=== PATIENT | female | born 1950 | race Caucasian/White ===

== ENCOUNTER 2021-03-18 21:17 | Observation (INO) | payer BC, OTHER ==
[2021-03-18 22:41] LABS: Absolute Lymphocytes (CBC) 1.3 K/uL (0.7-4.9); Basophils % 0.7 % (0-1.3); Hematocrit 38.9 % (36.0-45.0); Lymphocytes % 12.8 % (15.3-44.8); RBC Red Blood Cell Count 4.25 M/uL (3.86-4.86)
[2021-03-18 23:11] LABS: ALT/SGPT 20 U/L (12-78); AST/SGOT 12 U/L (15-37); Alkaline Phosphatase 51 U/L (45-117); BUN Blood Urea Nitrogen 23 mg/dL (7-18); Bicarbonate 31 mmol/L (21-32); Bilirubin Direct < 0.1 mg/dL (0-0.2); Bilirubin Total 0.4 mg/dL (0.2-1.0); Glucose Level 94 mg/dL (74-106); Magnesium 2.3 mg/dL (1.8-2.4); NT PRO-BNP 448 pg/mL (<125); Potassium 3.8 mmol/L (3.5-5.1); Protein, Total 7.9 g/dL (6.4-8.2); Sodium Level 139 mmol/L (136-145); Troponin (Emerg Dept Use Only) < 0.02 ng/mL (0.0-0.045)
[2021-03-18] MEDS ORDERED: METOPROLOL TARTRATE 5 MG/5 ML INJ IV ONE (23:23)
[2021-03-18] MEDS ORDERED: Magnesium Sulfate 2gm IVPB 2 G/50 ML BAG IV ONE (23:23)
[2021-03-18 23:40] LABS: Protime INR 1.02
[2021-03-19] MEDS ORDERED: NA CHLORIDE 0.9% 1,000 ML ONE (00:36)
[2021-03-19] MEDS ORDERED: HYDROCODONE/APAP 5/325 MG TAB ONE ×3 (00:36→12:06)
[2021-03-19] MEDS ORDERED: METOPROLOL TAR 50 MG TAB ONE ×2 (00:38→08:19)
--- NOTE | 2021-03-19 01:02 | ER ---
Nurse's Notes [facility] Name: Jumana Ley Age: 70 yrs Sex: Female : 1950 Arrival Date: 03/18/2021 Time: 21:29 Bed 17 Private MD: Diagnosis: Atrial fibrillation and flutter-with RVR Presentation: 03/18 21:31 Chief complaint: Patient states: I feel like my heart is racing, I have an abscessed jb4 tooth that's causing a earache and a headache. Coronavirus screen: Client denies travel out of the [place] in the last 14 days. At this time, the client does not indicate any symptoms associated with coronavirus-19. Ebola Screen: No symptoms or risks identified at this time. Initial Sepsis Screen: Does the patient meet any 2 criteria? HR > 90 bpm. Yes Does the patient have a suspected source of infection? No. Patient's initial sepsis screen is negative. Risk Assessment: Do you want to hurt yourself or someone else? Patient reports no desire to harm self or others. Onset of symptoms was March 18, 2021. 21:31 Method Of Arrival: Wheelchair jb4 21:31 Acuity: SHAI 2 jb4 Historical: - Allergies: 21:44 No Known Allergies; jb4 - Home Meds: 21:44 breathing treatment [Active]; Furosemide Oral [Active]; jb4 - PMHx: 21:44 COPD; Emphysema; jb4 - PSHx: 21:44 Tubal ligation; jb4 - Immunization history:: Adult Immunizations up to date. - Social history:: Smoking status: Patient/guardian denies using tobacco, the patient reports quitting approximately 8 years ago, Patient/guardian denies using alcohol, the patient reports quitting approximately [address] drugs. Screenin:20 Abuse screen: Denies threats or abuse. Denies injuries from another. Nutritional sf screening: No deficits noted. Tuberculosis screening: No symptoms or risk factors identified. Fall Risk None identified. No fall in past 12 months (0 pts). No secondary diagnosis (0 pts). IV access (20 points). Ambulatory Aid- None/Bed Rest/Nurse Assist (0 pts). Gait- Normal/Bed Rest/Wheelchair (0 pts) Mental Status- Oriented to own ability (0 pts). Total Nguyen Fall Scale indicates No Risk (0-24 pts). Assessment: 22:20 General: Appears in no apparent distress. comfortable, Behavior is calm, cooperative. sf Pain: Denies pain. Neuro: Level of Consciousness is awake, alert, Oriented to person, place, time, situation. Cardiovascular: Reports palpitations, shortness of breath, Denies nausea, vomiting, Capillary refill < 3 seconds Patient's skin is warm and dry. Pulses are all present. Rhythm is irregular. Respiratory: Reports shortness of breath at rest Airway is patent Respiratory effort is even, labored, Respiratory pattern is symmetrical, tachypnea the patient has moderate shortness of breath Denies cough, pain with respiration. GI: No deficits noted. No signs and/or symptoms were reported involving the gastrointestinal system. : No deficits noted. No signs and/or symptoms were reported regarding the genitourinary system. EENT: No deficits noted. No signs and/or symptoms were reported regarding the EENT system. Derm: No deficits noted. No signs and/or symptoms reported regarding the dermatologic system. Musculoskeletal: No deficits noted. No signs and/or symptoms reported regarding the musculoskeletal system. 23:20 Reassessment: Patient and/or family updated on plan of care and expected duration. Pain sf level reassessed. Patient is alert, oriented x 3, equal unlabored respirations, skin warm/dry/pink. No change to heart rate and rhythm, still irregular rate from 45-170 Patient states symptoms have not improved. 03/19 00:52 Reassessment: Patient appears in no apparent distress at this time. Patient and/or sf family updated on plan of care and expected duration. Pain level reassessed. Patient is alert, oriented x 3, equal unlabored respirations, skin warm/dry/pink. Rhythm remains irregular but rate now between 60 and 75 Patient states symptoms have improved. Vital Signs: 03/18 21:31 BP 122 / 89; Pulse 162; Resp 18; Temp 97.8(O); Pulse Ox 100% on 2 lpm NC; Weight 58.97 jb4 kg (R); Height 5 ft. 1 in. (154.94 cm); Pain 4/10; 22:00 BP 137 / 47; Pulse 135; Resp 20; Pulse Ox 94% ; sf 22:30 BP 178 / 119; Pulse 147; Resp 20; Pulse Ox 99% ; sf 23:00 BP 183 / 168; Pulse 72; Resp 20; Pulse Ox 98% on 3 lpm NC; sf 23:05 BP 148 / 115; Pulse 66; Resp 20; Pulse Ox 98% ; sf 23:10 BP 140 / 128; Pulse 42; Resp 20; Pulse Ox 98% ; sf 23:15 BP 143 / 126; Pulse 137; Resp 20; Pulse Ox 98% ; sf 23:20 BP 108 / 68; Pulse 149; Resp 20; Pulse Ox 97% ; sf 03/19 00:20 BP 150 / 97; Pulse 146; Resp 20; Pulse Ox 97% ; Pain 7/10; sf 00:40 BP 116 / 62; Pulse 82; Resp 20; Pulse Ox 100% ; sf 01:00 BP 138 / 56; Pulse 97; Resp 20; Pulse Ox 98% ; sf 01:20 BP 135 / 97; Pulse 55; Resp 20; Pulse Ox 98% ; sf 02:00 BP 124 / 45; Pulse 44; Resp 20; Pulse Ox 98% on 3 lpm NC; sf 03/18 21:31 Body Mass Index 24.56 (58.97 kg, 154.94 cm) jb4 ED Course: 03/18 21:29 Patient arrived in ED. cf2 21:43 Triage completed. jb4 21:44 Arm band placed on right wrist. jb4 21:54 Trevor Vazquez, JOSE RAUL is Primary Nurse. sf 22:08 Ady Jerez PA is PHCP. jr8 22:08 Raf Castro MD is Attending Physician. jr8 22:20 Patient has correct armband on for positive identification. Placed in gown. Bed in low sf position. Call light in reach. Side rails up X 1. school bus monitor on. Pulse ox on. NIBP on. Door closed. Noise minimized. Visitors limited. Lights dimmed. Verbal reassurance given. 22:23 XRAY Chest (1 view) In Process Unspecified. EDMS 22:25 Initial lab(s) drawn, by me, sent to lab. Inserted saline lock: 18 gauge in right sf forearm, using aseptic technique. Blood collected. Oxygen administration via nasal cannula \T\ 3L/min. 03/19 01:02 Hawk Marshall MD is Hospitalizing Provider. jr8 01:04 No provider procedures requiring assistance completed. EKG done, by ED staff, reviewed sf by Ady HERNÁNDEZ. 03:29 Patient admitted, IV remains in place. sf Administered Medications: 03/18 23:05 Drug: Metoprolol 5 mg Route: IVP; Site: right forearm; sf 23:10 Drug: Metoprolol 5 mg Route: IVP; Site: right forearm; sf 23:15 Drug: Metoprolol 5 mg Route: IVP; Site: right forearm; sf 23:23 Follow up: Response: No adverse reaction; No change in condition sf 23:16 Drug: Magnesium Sulfate 2 grams Route: IVPB; Infused Over: 2 hrs; Site: right forearm; sf 03/19 01:15 Follow up: IV Status: Completed infusion; IV Intake: 100ml sf 01:15 Follow up: Response: No adverse reaction sf 00:22 Drug: Metoprolol TARTRATE 50 mg Route: PO; sf 01:00 Follow up: Response: No adverse reaction; Marked relief of symptoms sf 00:22 Drug: [place] (HYDROcodone-acetaminophen) 5 mg-325 mg 1 tabs Route: PO; sf 01:00 Follow up: Response: No adverse reaction; Pain is decreased sf 00:24 Drug: NS 0.9% 1000 ml Route: IV; Rate: 1000 ml; Site: right forearm; sf 01:00 Follow up: Response: No adverse reaction; IV Status: Completed infusion; IV Intake: sf 500ml 01:59 Drug: Eliquis (apixaban) 5 mg Route: PO; sf 02:32 Follow up: Response: No adverse reaction sf Intake: 01:00 IV: 500ml; Total: 500ml. sf 01:15 IV: 100ml; Total: 600ml. Outcome: 01:02 Decision to Hospitalize by Provider. jr8 03:29 Admitted to ER Hold. Please see [facility] for further documentation. sf 03:29 Condition: stable 03:29 Instructed on the need for admit. 13:03 Patient left the ED. em Signatures: Dispatcher [employer] Dylan Ross RN Ady William PA PA jr8 Nik Obregon RN RN jb4 Faith Martin 2 Trevor Vazquez RN RN
--- NOTE | 2021-03-19 01:03 | EDPHYS ---
Physician Documentation [facility] Name: Jumana Ley Age: 70 yrs Sex: Female : 1950 Arrival Date: 03/18/2021 Time: 21:29 Bed 17 Private MD: ED Physician Raf Castro HPI: 03/18 23:23 This 70 yrs old Female presents to ER via Wheelchair with complaints of jr8 Palpitations, Chest Pain, Toothache, Ear Pain. 23:23 The patient presents with a history of irregular heart beat, heart racing. Context: The jr8 symptoms occur at rest. Onset: The symptoms/episode began/occurred acutely, today. Duration: The patient or guardian reports multiple episodes, that wax and wane. Modifying factors: The symptoms are aggravated by nothing. The symptoms are alleviated by nothing. Associated signs and symptoms: Pertinent positives: SOB. Severity of symptoms: At their worst the symptoms were moderate in the emergency department the symptoms are unchanged. The patient has experienced similar episodes in the past, a few times. The patient has not recently seen a physician. Patient stated that she has history of paroxysmal atrial fib in past. Stated that she is having it today and it is more persistent and now causing increased shortness of breath from her baseline. Also has toothache that radiates to right face and ear . Historical: - Allergies: 21:44 No Known Allergies; jb4 - Home Meds: 21:44 breathing treatment [Active]; Furosemide Oral [Active]; jb4 - PMHx: 21:44 COPD; Emphysema; jb4 - PSHx: 21:44 Tubal ligation; jb4 - Immunization history:: Adult Immunizations up to date. - Social history:: Smoking status: Patient/guardian denies using tobacco, the patient reports quitting approximately 8 years ago, Patient/guardian denies using alcohol, the patient reports quitting approximately [address] drugs. ROS: 23:23 Eyes: Negative for injury, pain, redness, and discharge, Neck: Negative for injury, jr8 pain, and swelling, Abdomen/GI: Negative for abdominal pain, nausea, vomiting, diarrhea, and constipation, Back: Negative for injury and pain, MS/Extremity: Negative for injury and deformity, Skin: Negative for injury, rash, and discoloration, Neuro: Negative for headache, weakness, numbness, tingling, and seizure. 23:23 ENT: Positive for Teeth pain 23:23 Cardiovascular: Positive for palpitations. 23:23 Respiratory: Positive for shortness of breath. Exam: 23:23 Neck: Trachea midline, no thyromegaly or masses palpated, and no cervical jr8 lymphadenopathy. Supple, full range of motion without nuchal rigidity, or vertebral point tenderness. No Meningismus. Abdomen/GI: Soft, non-tender, with normal bowel sounds. No distension or tympany. No guarding or rebound. No evidence of tenderness throughout. Skin: Warm, dry with normal turgor. Normal color with no rashes, no lesions, and no evidence of cellulitis. MS/ Extremity: Pulses equal, no cyanosis. Neurovascular intact. Full, normal range of motion. Neuro: Awake and alert, GCS 15, oriented to person, place, time, and situation. Cranial nerves II-XII grossly intact. Motor strength 5/5 in all extremities. Sensory grossly intact. 23:23 ENT: Exam is negative for earache, ear discharge, TM abnormalities, nasal discharge, sinus tenderness, enlarged tonsils, pharyngitis, exudate, Dental exam: dental caries, that is mild, diffusely, pain, that is moderate, specifically in the lower right second molar (#31). 23:23 Cardiovascular: Rate: tachycardic, Rhythm: irregularly irregular, Pulses: Pulses are 2+ in right radial artery and left radial artery. Edema: is not appreciated, JVD: is not appreciated. 23:23 Respiratory: the patient does not display signs of respiratory distress, Respirations: labored breathing, that is mild, Breath sounds: rhonchi, that are mild. Vital Signs: 21:31 BP 122 / 89; Pulse 162; Resp 18; Temp 97.8(O); Pulse Ox 100% on 2 lpm NC; Weight 58.97 jb4 kg (R); Height 5 ft. 1 in. (154.94 cm); Pain 4/10; 22:00 BP 137 / 47; Pulse 135; Resp 20; Pulse Ox 94% ; sf 22:30 BP 178 / 119; Pulse 147; Resp 20; Pulse Ox 99% ; sf 23:00 BP 183 / 168; Pulse 72; Resp 20; Pulse Ox 98% on 3 lpm NC; sf 23:05 BP 148 / 115; Pulse 66; Resp 20; Pulse Ox 98% ; sf 23:10 BP 140 / 128; Pulse 42; Resp 20; Pulse Ox 98% ; sf 23:15 BP 143 / 126; Pulse 137; Resp 20; Pulse Ox 98% ; sf 23:20 BP 108 / 68; Pulse 149; Resp 20; Pulse Ox 97% ; sf 03/19 00:20 BP 150 / 97; Pulse 146; Resp 20; Pulse Ox 97% ; Pain 7/10; sf 00:40 BP 116 / 62; Pulse 82; Resp 20; Pulse Ox 100% ; sf 01:00 BP 138 / 56; Pulse 97; Resp 20; Pulse Ox 98% ; sf 01:20 BP 135 / 97; Pulse 55; Resp 20; Pulse Ox 98% ; sf 02:00 BP 124 / 45; Pulse 44; Resp 20; Pulse Ox 98% on 3 lpm NC; 03/18 21:31 Body Mass Index 24.56 (58.97 kg, 154.94 cm) jb4 MDM: 03/18 22:10 Patient medically screened. [facility] 03/19 01:01 Data reviewed: vital signs, nurses notes, lab test result(s), EKG, radiologic studies, [facility] plain films. Data interpreted: Pulse oximetry: on room air is 97 %. Interpretation: normal. Counseling: I had a detailed discussion with the patient and/or guardian regarding: the historical points, exam findings, and any diagnostic results supporting the discharge/admit diagnosis, lab results, radiology results, the need for further work-up and treatment in the hospital. 03/18 22:09 Order name: Basic Metabolic Panel [facility] 03/18 22:09 Order name: CBC with Diff [facility] 03/18 22:09 Order name: LFT's [facility] 03/18 22:09 Order name: Magnesium; Complete Time: 23:22 [facility] 03/18 22:09 Order name: NT PRO-BNP; Complete Time: 23:22 [facility] 03/18 22:09 Order name: PT-INR; Complete Time: 23:55 [facility] 03/18 22:09 Order name: Troponin (emerg Dept Use Only); Complete Time: 23:22 [facility] 03/18 22:10 Order name: Basic Metabolic Panel; Complete Time: 23:22 [facility] 03/18 22:10 Order name: CBC with Automated Diff; Complete Time: 23:08 [facility] 03/18 22:10 Order name: Liver (Hepatic) Function; Complete Time: 23:22 [facility] 03/19 05:27 Order name: CORONAVIRUS [facility] 03/19 06:15 Order name: SARS-COV-2 RT PCR [facility] 03/19 06:28 Order name: CBC with Automated Diff [facility] 03/19 06:43 Order name: Comprehensive Metabolic Panel [facility] 03/18 21:59 Order name: EKG - Nurse/Tech; Complete Time: 21:59 4 03/18 22:09 Order name: XRAY Chest (1 view) [facility] 03/18 22:09 Order name: Cardiac monitoring; Complete Time: 22:45 8 03/18 22:09 Order name: IV Saline Lock; Complete Time: 22:45 [facility] 03/18 22:09 Order name: Labs collected and sent; Complete Time: 22:45 [facility] 03/18 22:09 Order name: O2 Per Protocol; Complete Time: 22:45 [facility] 03/19 06:43 Order name: T4 Free [facility] 03/19 06:43 Order name: Magnesium [facility] 03/19 06:43 Order name: Thyroid Stimulating Hormone [facility] 03/19 08:41 Order name: CBC Smear Scan [facility] 03/18 22:09 Order name: O2 Sat Monitoring; Complete Time: 22:45 jr8 Administered Medications: 03/18 23:05 Drug: Metoprolol 5 mg Route: IVP; Site: right forearm; sf 23:10 Drug: Metoprolol 5 mg Route: IVP; Site: right forearm; sf 23:15 Drug: Metoprolol 5 mg Route: IVP; Site: right forearm; sf 23:23 Follow up: Response: No adverse reaction; No change in condition sf 23:16 Drug: Magnesium Sulfate 2 grams Route: IVPB; Infused Over: 2 hrs; Site: right forearm; sf 03/19 01:15 Follow up: IV Status: Completed infusion; IV Intake: 100ml sf 01:15 Follow up: Response: No adverse reaction sf 00:22 Drug: Metoprolol TARTRATE 50 mg Route: PO; sf 01:00 Follow up: Response: No adverse reaction; Marked relief of symptoms sf 00:22 Drug: [place] (HYDROcodone-acetaminophen) 5 mg-325 mg 1 tabs Route: PO; sf 01:00 Follow up: Response: No adverse reaction; Pain is decreased sf 00:24 Drug: NS 0.9% 1000 ml Route: IV; Rate: 1000 ml; Site: right forearm; sf 01:00 Follow up: Response: No adverse reaction; IV Status: Completed infusion; IV Intake: sf 500ml 01:59 Drug: Eliquis (apixaban) 5 mg Route: PO; sf 02:32 Follow up: Response: No adverse reaction sf Disposition: 03:38 Co-signature as Attending Physician, Raf Castro MD. pkl Disposition: 03/19/21 01:02 Hospitalization ordered by Hawk Marshall for Observation. Preliminary diagnosis is Atrial fibrillation and flutter - with RVR. - Bed requested for [facility] ER HOLD. - Status is Observation. em - Condition is Stable. - Problem is new. - Symptoms have improved. Signatures: Dispatcher [employer] EDRaf Yo MD MD pkl Dylan High, RN RN em Ady Jerez, PA PA jr8 Juan Reilly, WASTE TRANSPORTATION TECHNICIAN-C WASTE TRANSPORTATION TECHNICIAN-Cla1 Nik Obregon, RN RN jb4 Wilner Keene mw2 Trevor Vazquez RN RN sf Corrections: (The following items were deleted from the chart) 01:49 01:02 Hospitalization Ordered by Hawk Marshall MD for Observation. Preliminary mw2 diagnosis is Atrial fibrillation and flutter - with RVR. Bed requested for Telemetry/MedSurg (observation). Status is Observation. Condition is Stable. Problem is new. Symptoms have improved. jr8 13:03 01:49 03/19/2021 01:02 Hospitalization Ordered by Hawk Marshall MD for Observation. em Preliminary diagnosis is Atrial fibrillation and flutter - with RVR. Bed requested for [facility] ER HOLD. Status is Observation. Condition is Stable. Problem is new. Symptoms have improved. mw2
--- NOTE | 2021-03-19 01:51 | P.HP ---
Certification for Inpatient Patient admitted to: Observation With expected LOS: <2 Midnights Patient will require the following post-hospital care: None Practitioner: I am a practitioner with admitting privileges, knowledge of patient current condition, hospital course, and medical plan of care. Services: Services provided to patient in accordance with Admission requirements found in Title 42 Section 412.3 of the Code of Federal Regulations Patient History Date of Service: 03/19/21 Reason for admission: AFib RVR History of Present Illness: 70-year-old female with history of COPD, hypertension presents emergency department with palpitations. Patient reports that she has had a history of paroxysmal atrial fibrillation but is never persisted or require treatment, upon presentation to the emergency department patient tachycardic with irregularly irregular rhythm around rate of 160. Patient was treated with IV Lopressor x3, p.o. Lopressor, IV magnesium and rate was controlled although she is still in irregular rhythm. Labs significant for mildly elevated BNP 448 GFR 89. Chest x-ray unremarkable. Patient reports that she has COPD and has been using albuterol nebulizer 4 times a day but not taking any other control medications as she has not seen her retail merchandiser since last year. Patient also reports right lower dental pain. ED provider wishes to admit for further evaluation and management of AFib RVR. - Past Medical/Surgical History -: COPD -: Hypertension -: Tubal ligation Psychosocial/ Personal History: Patient is retired, lives with her - Family History Father -: Heart disease, Cancer Mother -: Heart disease, Cancer - Social History Smoking Status: Former smoker Alcohol use: No CD- Drugs: No Caffeine use: Yes Place of Residence: Home Review of Systems 10-point ROS is otherwise unremarkable Respiratory: Shortness of Breath Cardiovascular: Palpitations Physical Examination - Physical Exam General: Alert, In no apparent distress HEENT: Atraumatic, PERRLA, Mucous membr. moist/pink Neck: Supple, 2+ carotid pulse no bruit, No LAD, Without JVD or thyroid abnormality Respiratory: Clear to auscultation bilaterally, Normal air movement, Diminished Cardiovascular: Normal S1 S2, Irregular heart rate/rhythm Capillary refill: <2 Seconds Gastrointestinal: Normal bowel sounds, No tenderness Musculoskeletal: No tenderness Integumentary: No rashes Neurological: Normal speech, Normal strength at 5/5 x4 extr, Normal tone, Normal affect - Studies Laboratory Data (last 24 hrs) 03/18/21 22:25: PT 11.7, INR 1.02 03/18/21 22:25: WBC 10.50, Hgb 12.6, Hct 38.9, Plt Count 179 03/18/21 22:25: Sodium 139, Potassium 3.8, BUN 23 H, Creatinine 0.66, Glucose 94, Magnesium 2.3, Total Bilirubin 0.4, AST 12 L, ALT 20, Alkaline Phosphatase 51 Assessment and Plan - Plan Assessment Paroxysmal atrial fibrillation with rapid ventricular response Hypertension COPD Plan Paroxysmal atrial fibrillation with rapid ventricular response: Rate controlled at this time, continue with p.o. metoprolol 50 mg twice daily with parameters. Cardiology consult in place. Eliquis 5 mg was initiated in the emergency department, patient's SAI VASC score is 3 which would suggest with the implementation of anti coagulation therapy. Appreciate further input from cardiology. Hypertension: Continue with metoprolol. Add other medications as necessary. COPD: Patient reports she has been taking albuterol nebulizer 4 times daily without any of the control medications, will initiate Dulera inhaler, instructed patient's needs to follow up with pulmonology on outpatient basis. Discharge Plan: Home Plan to discharge in: 24 Hours - Advance Directives Does patient have a Living Will: No Does patient have a Durable POA for Healthcare: No - Code Status/Comfort Care Code Status Assessed: Yes (Full code) Critical Care: No Time Spent Managing Pts Care (In Minutes): 55
[2021-03-19] MEDS ORDERED: APIXABAN 5 MG TABLET ONE ×2 (02:16→08:19)
[2021-03-19 02:47] VITALS: BMI 24.5
[2021-03-19] MEDS ORDERED: ONDANSETRON 4 MG/2 ML VIAL IV PRN (02:47)
[2021-03-19] MEDS ORDERED: HYDROCODONE/APAP 5/325 MG TAB PO PRN (02:47)
[2021-03-19] MEDS ORDERED: ALBUTEROL INHALER 60 PUFF/8 GM IH PRN (02:47)
[2021-03-19] MEDS ORDERED: ALBUTEROL 2.5 MG/3 ML NEB SOL NEB PRN (03:10)
[2021-03-19] MEDS: LEVALBUTEROL 1.25 MG/3 ML NEB NEB PRN ×2 (03:25→08:40)
[2021-03-19] MEDS ORDERED: LEVALBUTEROL 1.25 MG/3 ML NEB ONE (03:33)
[2021-03-19] MEDS ORDERED: METOPROLOL TARTRATE 5 MG/5 ML INJ IV STA ×3 (05:27→06:18)
[2021-03-19] MEDS ORDERED: METOPROLOL TARTRATE 5 MG/5 ML INJ IV ONE ×2 (05:48→06:14)
[2021-03-19 06:27] LABS: Absolute Lymphocytes (CBC) 0.6 K/uL (0.7-4.9); Basophils % 0.5 % (0-1.3); Hematocrit 37.4 % (36.0-45.0); Lymphocytes % 6.7 % (15.3-44.8); MPV 9.2 fL (7.6-11.3); RBC Red Blood Cell Count 4.05 M/uL (3.86-4.86)
[2021-03-19 06:40] LABS: ALT/SGPT 19 U/L (12-78); AST/SGOT 14 U/L (15-37); Albumin 3.5 g/dL (3.4-5.0); Alkaline Phosphatase 47 U/L (45-117); BUN Blood Urea Nitrogen 20 mg/dL (7-18); Bicarbonate 31 mmol/L (21-32); Bilirubin Total 0.4 mg/dL (0.2-1.0); Glucose Level 95 mg/dL (74-106); Magnesium 2.6 mg/dL (1.8-2.4); Potassium 4.3 mmol/L (3.5-5.1); Protein, Total 7.3 g/dL (6.4-8.2); Sodium Level 140 mmol/L (136-145)
[2021-03-19 08:17] VITALS: BP 142/60
[2021-03-19 08:26] VITALS: O2SAT 100
[2021-03-19 08:41] LABS: Blood Morphology Comment NOT SEEN (NOT SEEN); Platelet Estimate ADEQ; White Blood Cell Scan OK (OK)
--- NOTE | 2021-03-19 08:49 | RAD REPORT ---
EXAM DESCRIPTION: RAD - Chest Single View - 03/18/2021 10:23 pm CLINICAL HISTORY: DYSPNEA Chest pain. COMPARISON: No comparisons FINDINGS: Portable technique limits examination quality. The lungs are emphysematous but grossly clear. The heart is normal in size. No displaced fractures. IMPRESSION: COPD.
[2021-03-19] MEDS ORDERED: LEVALBUTEROL 0.63 MG/3 ML NEB ONE (08:55)
[2021-03-19] MEDS ORDERED: APIXABAN 5 MG TABLET PO SCH (09:00)
[2021-03-19] MEDS ORDERED: PNEUMOCOCCAL VACCINE 0.5 ML IMVAC ONE (09:00)
[2021-03-19] MEDS ORDERED: DULERA 100/5 (MOMETASONE/FORMOTEROL) INHALER IH SCH (09:00)
[2021-03-19] MEDS ORDERED: METOPROLOL TAR 50 MG TAB PO SCH (09:00)
--- NOTE | 2021-03-19 13:03 | CON ---
Date of Consultation: 03/19/2021 Reason For Consultation: Atrial fibrillation with rapid ventricular response as a new onset. History Of Present Illness: Ms. Ley is a 70-year-old woman without any past cardiac history. She does have a history of COPD. She is home oxygen dependent. Came in with new onset of atrial fi brillation, initial heart rate 140, was given beta-shikha, was given Eliquis, and she converted to s inus rhythm by the time I saw her without any symptoms. She has initially complained of palpitation and shortness of breath, but no chest pain. No nausea, vomiting, diaphoresis, PND, orthopnea, pedal edema, or syncope. She denied fever or chills or cough. Past Medical History: Includes COPD. Medications: At home include Lasix and breathing treatment. Review of Systems: Negative. Social History: Positive for tobacco that she quit. Family History: Noncontributory. Physical Examination: Vital Signs: By the time I saw her; her blood pressure was 130/89, her pulse was 62. She was afebri le. HEENT: Negative. Neck: Supple with no bruit. Chest: Clear to auscultation and percussion. Cardiac: Revealed a regular rhythm and rate. No murmurs, gallops, or rubs. Abdomen: Benign. Extremities: Revealed no clubbing, cyanosis, or edema. Laboratory Data: Her chest x-ray showed COPD and EKG atrial fibrillation. Her blood work was normal . Her BNP was slightly elevated at 448. Her TSH was normal. Impression And Plan: New onset atrial fibrillation, probably secondary to chronic obstructive pulmon katarina disease. Continue inhalers at home. She needs to be placed on metoprolol, which she is on now. I would leave that up to Dr. Marshall whether he wants to treat her with Eliquis or Xarelto, but she is in sinus rhythm, asymptomatic. I am comfortable with her going home. I will make sure she gets an echocardiogram as an outpatient. I will see her in the office in the next few days. ROCÍO/DIMITRI Voice ID: [id number] Report ID: [id number]
[2021-03-19 13:19] VITALS: TEMP 97.8
--- NOTE | 2021-03-19 20:17 | P.DS ---
Admission Date: 03/19/21 Discharge Date: 03/19/21 Disposition: ROUTINE DISCHARGE Discharge Condition: GOOD Reason for Admission: AFib RVR Consultations: Cardiology - Dr. Blackwood Procedures: Problem List: Paroxysmal atrial fibrillation with rapid ventricular response Hypertension COPD Brief History of Present Illness: 70-year-old female with history of COPD, hypertension presents emergency department with palpitations. Patient reports that she has had a history of paroxysmal atrial fibrillation but is never persisted or require treatment, upon presentation to the emergency department patient tachycardic with irregularly irregular rhythm around rate of 160. Patient was treated with IV Lopressor x3, p.o. Lopressor, IV magnesium and rate was controlled although she is still in irregular rhythm. Labs significant for mildly elevated BNP 448 GFR 89. Chest x-ray unremarkable. Patient reports that she has COPD and has been using albuterol nebulizer 4 times a day but not taking any other control medications as she has not seen her personal banking advisor since last year. Patient also reports right lower dental pain. ED provider wishes to admit for further evaluation and management of AFib RVR. Hospital Course: Patient received lopressor IV and PO metoprolol 50mg BID. She converted back to sinus rhythm and was feeling better. She was evaluated by Cardiology who recommended discharge home with metoprolol and close follow up in a few days in the office. She will undergo echocardiogram as an outpatient. Discharged with prescription for Eliquis as well. Vital Signs/Physical Exam: Temp Pulse Resp BP Pulse Ox 97.8 F 66 21 H 142/60 H 99 03/18/21 21:31 03/19/21 08:17 03/19/21 08:00 03/19/21 08:17 03/19/21 08:00 Laboratory Data at Discharge: WBC 9.40 K/uL (4.3-10.9) 03/19/21 03:41 Hgb 12.0 g/dL (12.0-15.0) 03/19/21 03:41 Hct 37.4 % (36.0-45.0) 03/19/21 03:41 Plt Count 183 K/uL (152-406) 03/19/21 03:41 PT 11.7 SECONDS (9.5-12.5) 03/18/21 22:25 INR 1.02 03/18/21 22:25 Sodium 140 mmol/L (136-145) 03/19/21 05:45 Potassium 4.3 mmol/L (3.5-5.1) 03/19/21 05:45 BUN 20 mg/dL (7-18) H 03/19/21 05:45 Creatinine 0.49 mg/dL (0.55-1.3) L 03/19/21 05:45 Glucose 95 mg/dL (74-106) 03/19/21 05:45 Magnesium 2.6 mg/dL (1.8-2.4) H 03/19/21 05:45 Total Bilirubin 0.4 mg/dL (0.2-1.0) 03/19/21 05:45 AST 14 U/L (15-37) L 03/19/21 05:45 ALT 19 U/L (12-78) 03/19/21 05:45 Alkaline Phosphatase 47 U/L (45-117) 03/19/21 05:45 Home Medications: Apixaban [Eliquis] 5 mg PO BID #0 tablet 03/19/21 Metoprolol Tartrate [Lopressor*] 50 mg PO BID #0 tab 03/19/21 Mometasone/Formoterol [Dulera 100 Mcg/5 Mcg Inhaler] 2 puff IH BID 30 Days #1 inhaler 03/19/21 New Medications: Mometasone/Formoterol [Dulera 100 Mcg/5 Mcg Inhaler] 2 puff IH BID 30 Days #1 inhaler Apixaban [Eliquis] 5 mg PO BID #0 tablet Metoprolol Tartrate [Lopressor*] 50 mg PO BID #0 tab Physician Discharge Instructions: You were found to have atrial fibrillation. Your rhythm improved with metoprolol. Atrial Fibrillation (afib) increases your risk of developing a blood clot and a stroke. For this reason, you are recommended to take a blood thinner - Eliquis. Continue your other home medications as prescribed. Please follow up with Dr. Blackwood as discussed on Tuesday at 1pm. PROBLEM: Atrial Fibrillation GOAL: Clear understanding of disease process INSTRUCTIONS: Please follow up with primary care doctor as instructed. Diet: Heart Healthy Activity: As tolerated Diet: AHA Activity: Ad eddie Followup: OOT,OOT [Primary Care Provider] - Time spent managing pt's care (in minutes): 35
== END 2021-03-19 11:00 | disposition home or self-care (01) ==
LOC: ER 21:17 → INTOOBSV 03-19 01:37 → ERHOLD 03-19 01:37
PROVIDERS: ADMIT Hospitalist; ATTEND Hospitalist
DX: I48.0 Paroxysmal atrial fibrillation (principal); I48.92 Unspecified atrial flutter; I10 Essential (primary) hypertension; J44.9 Chronic obstructive pulmonary disease, unspecified; Z99.81 Dependence on supplemental oxygen; J43.9 Emphysema, unspecified; K08.89 Other specified disorders of teeth and supporting structures; Z20.822 Contact with and (suspected) exposure to COVID-19; Z87.891 Personal history of nicotine dependence; Z82.49 Family history of ischemic heart disease and other diseases of the circulatory system; Z80.9 Family history of malignant neoplasm, unspecified
CPT/HCPCS: 96365; 93005 ×2; 85025 ×2; 80048; 36415; 83735 ×2; 85610; 80076; 84443; 84484; 84439; 80053; 83880; 71045; 94640; 96375; 99285; 96366; U0003; J3475; J7030; G0378; J7606

== ENCOUNTER 2021-03-23 05:13 | Inpatient (IN) | payer BC, OTHER ==
--- OUTSIDE RECORDS SUMMARY | 2021-03-23 05:17 | XMS REPORT | Continuity of Care Document ---
:1950 Author Organization [facility] t Address [address] [place] [address] [address]. [address] [place] [address] Care Team Providers Name Role Phone Vickey PAGE Attending Clinician Rico PAGE S Attending Clinician Soham PAGE Attending Clinician Soham PAGE Admitting Clinician Problems This patient has no known problems. Allergies, Adverse Reactions, Alerts This patient has no known allergies or adverse reactions. Medications This patient has no known medications. Procedures This patient has no known procedures. Encounters Start End Encounter Admission Attending Care Care Encounter Source Date/Time Date/Time Type Type Clinicians Facility Department ID 2020-03-25 2020-04-02 [facility] Casey Hurd [facility] [id number] 18:31:30 16:00:00 Encounter Samson Gómez [id number] Robert Rousseau [id number] [place] [id number] Results This patient has no known results.
[2021-03-23] MEDS ORDERED: NA CHLORIDE 0.9% 1,000 ML ONE (06:05)
[2021-03-23] MEDS ORDERED: METOPROLOL TARTRATE 5 MG/5 ML INJ IV ONE (06:05)
[2021-03-23 06:08] LABS: Absolute Lymphocytes (CBC) 1.3 K/uL (0.7-4.9); Basophils % 0.6 % (0-1.3); Hematocrit 38.4 % (36.0-45.0); Lymphocytes % 12.7 % (15.3-44.8); MPV 9.4 fL (7.6-11.3); RBC Red Blood Cell Count 4.19 M/uL (3.86-4.86)
[2021-03-23 06:20] LABS: Protime INR 1.24
[2021-03-23 06:30] LABS: ALT/SGPT 23 U/L (12-78); AST/SGOT 17 U/L (15-37); Albumin 3.9 g/dL (3.4-5.0); Alkaline Phosphatase 50 U/L (45-117); BUN Blood Urea Nitrogen 24 mg/dL (7-18); Bicarbonate 34 mmol/L (21-32); Bilirubin Direct < 0.1 mg/dL (0-0.2); Bilirubin Total 0.3 mg/dL (0.2-1.0); Glucose Level 131 mg/dL (74-106); NT PRO-BNP 1391 pg/mL (<125); Potassium 4.5 mmol/L (3.5-5.1); Sodium Level 139 mmol/L (136-145); Troponin (Emerg Dept Use Only) < 0.02 ng/mL (0.0-0.045)
--- NOTE | 2021-03-23 06:57 | ER ---
Nurse's Notes [facility] Name: Jumana Ley Age: 70 yrs Sex: Female : 1950 Arrival Date: 03/23/2021 Time: 05:14 Bed 6 Private MD: Diagnosis: Chest pain, unspecified;Paroxysmal atrial fibrillation-with RVR Presentation: 03/23 05:32 Ebola Screen: No symptoms or risks identified at this time. ea 05:46 Chief complaint: Patient states: Reports she started feeling short of breath and felt ea chest pain and flutters in her chest. Coronavirus screen: At this time, the client does not indicate any symptoms associated with coronavirus-19. Initial Sepsis Screen: Does the patient meet any 2 criteria? HR > 90 bpm. Does the patient have a suspected source of infection? No. Patient's initial sepsis screen is negative. Risk Assessment: Do you want to hurt yourself or someone else? Patient reports no desire to harm self or others. Onset of symptoms was March 23, 2021. 05:46 Acuity: SHAI 3 ea 05:46 Method Of Arrival: Wheelchair ea Historical: - Allergies: 05:45 No Known Allergies; ea - Home Meds: 05:45 Breathing Treatment [Active]; Furosemide Oral [Active]; ea - PMHx: 05:45 COPD; Emphysema; ea - PSHx: 05:45 Tubal ligation; ea - Immunization history:: Adult Immunizations up to date. - Social history:: Smoking status: Patient denies any tobacco usage or history of. Screenin:32 Abuse screen: Denies threats or abuse. Nutritional screening: No deficits noted. ea Tuberculosis screening: No symptoms or risk factors identified. Fall Risk None identified. Assessment: 05:48 General: Appears uncomfortable, Behavior is appropriate for age. Pain: Complains of ea pain in chest Pain does not radiate. Neuro: Level of Consciousness is awake, alert, obeys commands, Oriented to person, place, time. Cardiovascular: Patient's skin is warm and dry. Respiratory: Airway is patent Respiratory effort is even, unlabored, Respiratory pattern is tachypnea. Derm: Skin is pink, warm \T\ dry. 07:32 Reassessment: HR 70-156, variable. Dr. Marshall at bedside. Repeat EKG complete. Admission hb ordered, awaiting hospitalist orders and COVID results at this time. remains at bedside. Vital Signs: 05:43 BP 128 / 72; Pulse 172; Resp 22; Temp 98; Pulse Ox 99% ; ea 05:49 BP 146 / 77; Pulse 65; Resp 24; Pulse Ox 100% on 3 lpm NC; ea 07:15 BP 112 / 93; Pulse 153; Resp 21; Pulse Ox 96% 3 lpm ; hb ED Course: 05:14 Patient arrived in ED. bp1 05:31 Leo Yanes MD is Attending Physician. mh7 05:40 EKG done, by ED staff, reviewed by Leo Yanes MD. rv 05:43 Patient has correct armband on for positive identification. Placed in gown. Bed in low ea position. Call light in reach. Side rails up X2. cardiac monitor on. Pulse ox on. NIBP on. 05:43 Arm band placed on right wrist. Patient placed in an exam room, on a stretcher, on ea pulse oximetry. 05:46 Inserted saline lock: 20 gauge in left antecubital area, using aseptic technique. Blood ea collected. Per Jeovanny BLUNT. Oxygen administration via nasal cannula \T\ 3L/min. 05:48 Triage completed. ea 05:49 Brandy Amaral RN is Primary Nurse. ea 06:17 XRAY Chest (1 view) In Process Unspecified. EDMS 06:56 Hawk Marshall MD is Hospitalizing Provider. mh7 07:11 Primary Nurse role handed off by Brandy Amaral RN bd 07:27 Beti Starks RN is Primary Nurse. hb 08:48 No provider procedures requiring assistance completed. Patient admitted, IV remains in hb place. 19:16 Primary Nurse role handed off by Beti Starks RN mw2 20:13 Attending Physician role handed off by Leo Yanes MD mg2 20:14 Virgil Marshall MD is Attending Physician. rn Administered Medications: 06:10 Drug: Metoprolol 5 mg Route: IVP; Site: left forearm; rv 06:43 Drug: Metoprolol 5 mg Route: IVP; Site: left forearm; rv 06:53 Drug: Metoprolol 5 mg Route: IVP; Site: left forearm; rv 07:30 Follow up: Response: No adverse reaction hb 08:00 Drug: Aspirin Chewable Tablet 324 mg Route: PO; hb 08:50 Follow up: Response: No adverse reaction hb Outcome: 06:57 Decision to Hospitalize by Provider. [facility] 08:30 Admitted to ER Hold. Please see [facility] for further documentation. hb 08:30 Condition: stable 08:30 Instructed on the need for admit, Demonstrated understanding of 19:53 Patient left the ED. mg2 22:32 Patient left the ED. jb4 Signatures: Dispatcher [employer] EDMS Rosa Blank Irene, RN JOSE RAUL Virgil Marshall MD MD rn Baxter, Heather, RN RN Nik Obregon RN RN jb4 Brandy Amaral, RN Wilner Patel ea 2 Aquiles Wesley, RN JOSE RAUL [facility] Gt Pradhan RN RN Maria Ines Waller Maurice, MD MD 7
--- NOTE | 2021-03-23 06:57 | EDPHYS ---
Physician Documentation [facility] Name: Jumana Ley Age: 70 yrs Sex: Female : 1950 Arrival Date: 03/23/2021 Time: 05:14 Bed 6 Private MD: ED Physician Virgil Marshall HPI: 03/23 05:57 This 70 yrs old Female presents to ER via Wheelchair with complaints of Chest mh7 Pain, Chest Pain, Possible Cardiac Related. 05:57 The patient or guardian reports chest pain that is located primarily in the substernal mh7 area. 05:57 Onset: last night. The pain does not radiate. Associated signs and symptoms: Pertinent mh7 positives: palpitations, shortness of breath, Pertinent negatives: abdominal pain, cough, diaphoresis, dizziness, headache, lower extremity pain, lower extremity swelling, nausea, near syncope, recent travel, syncope, vomiting. 05:58 The chest pain is described as a pressure. Duration: The patient or guardian reports mh7 multiple episodes, that are intermittent, that wax and wane, with no pattern. Modifying factors: The symptoms are alleviated by nothing. the symptoms are aggravated by nothing. Severity of pain: At its worst the pain was moderate last night, in the emergency department the pain has improved moderately. Historical: - Allergies: 05:45 No Known Allergies; ea - Home Meds: 05:45 Breathing Treatment [Active]; Furosemide Oral [Active]; ea - PMHx: 05:45 COPD; Emphysema; ea - PSHx: 05:45 Tubal ligation; ea - Immunization history:: Adult Immunizations up to date. - Social history:: Smoking status: Patient denies any tobacco usage or history of. ROS: 05:58 Constitutional: Negative for fever, chills, and weight loss, Eyes: Negative for injury, mh7 pain, redness, and discharge, ENT: Negative for injury, pain, and discharge, Neck: Negative for injury, pain, and swelling, Abdomen/GI: Negative for abdominal pain, nausea, vomiting, diarrhea, and constipation, Back: Negative for injury and pain, : Negative for injury, bleeding, discharge, and swelling, MS/Extremity: Negative for injury and deformity, Skin: Negative for injury, rash, and discoloration, Neuro: Negative for headache, weakness, numbness, tingling, and seizure, Psych: Negative for depression, anxiety, suicide ideation, homicidal ideation, and hallucinations, Allergy/Immunology: Negative for hives, rash, and allergies, Endocrine: Negative for neck swelling, polydipsia, polyuria, polyphagia, and marked weight changes, Hematologic/Lymphatic: Negative for swollen nodes, abnormal bleeding, and unusual bruising. Exam: 05:58 Head/Face: Normocephalic, atraumatic. Eyes: Pupils equal round and reactive to light, mh7 extra-ocular motions intact. Lids and lashes normal. Conjunctiva and sclera are non-icteric and not injected. Cornea within normal limits. Periorbital areas with no swelling, redness, or edema. Neck: Trachea midline, no thyromegaly or masses palpated, and no cervical lymphadenopathy. Supple, full range of motion without nuchal rigidity, or vertebral point tenderness. No Meningismus. Chest/axilla: Normal chest wall appearance and motion. Nontender with no deformity. No lesions are appreciated. 05:58 Abdomen/GI: Soft, non-tender, with normal bowel sounds. No distension or tympany. No guarding or rebound. No evidence of tenderness throughout. Back: No spinal tenderness. No costovertebral tenderness. Full range of motion. Skin: Warm, dry with normal turgor. Normal color with no rashes, no lesions, and no evidence of cellulitis. MS/ Extremity: Pulses equal, no cyanosis. Neurovascular intact. Full, normal range of motion. Neuro: Awake and alert, GCS 15, oriented to person, place, time, and situation. Cranial nerves II-XII grossly intact. Motor strength 5/5 in all extremities. Sensory grossly intact. Cerebellar exam normal. Normal gait. Psych: Awake, alert, with orientation to person, place and time. Behavior, mood, and affect are within normal limits. 05:58 Constitutional: The patient appears in no acute distress, alert, awake, uncomfortable. 05:58 Cardiovascular: Rate: tachycardic, Rhythm: irregularly irregular, Pulses: no pulse deficits are appreciated, Heart sounds: normal, normal S1and S2, Edema: is not appreciated, JVD: is not appreciated. 05:58 Respiratory: the patient does not display signs of respiratory distress, Respirations: prolonged exhalation, that is mild, Breath sounds: rhonchi, that are mild, are scattered, Respiratory rate: 24 Vital Signs: 05:43 BP 128 / 72; Pulse 172; Resp 22; Temp 98; Pulse Ox 99% ; ea 05:49 BP 146 / 77; Pulse 65; Resp 24; Pulse Ox 100% on 3 lpm NC; ea 07:15 BP 112 / 93; Pulse 153; Resp 21; Pulse Ox 96% 3 lpm ; hb MDM: 06:53 Differential diagnosis: abnormal EKG, acute myocardial infarction, acute pericarditis, mh7 anxiety, coronary artery disease chest wall pain, congestive heart failure costochondritis, myocarditis, pericarditis, pneumonia, pneumothorax. HEART Score: History: Highly Suspicious (2), ECG: Non specific repolarization disturbance / LBTB / PM (1), Age: > or = 65 years (2), Risk Factors: 1 or 2 risk factors (1), [Hypertension] Troponin: < or = 1 x Normal Limit (0), Total Score = 6. Data reviewed: vital signs, nurses notes, old medical records, lab test result(s), cardiac enzymes, CBC, electrolytes, urinalysis, EKG, radiologic studies, plain films. 06:54 Data interpreted: Pulse oximetry: on 4L(s) per nasal canula, is 98 %. Interpretation: [facility] acceptable. Counseling: I had a detailed discussion with the patient and/or guardian regarding: the historical points, exam findings, and any diagnostic results supporting the discharge/admit diagnosis, the presence of at least one elevated blood pressure reading (>120/80) during this emergency department visit, lab results, radiology results, the need for further work-up and treatment in the hospital. Response to treatment: the patient's symptoms have mildly improved after treatment. 06:[address] [facility] 20:24 ED course: Called to room on this patient who is admitted, received beta shikha and rn ativan earlier, now more somnolent and tachypneic, likely CO2 retention, ABG ordered as well as bipap. No longer afib with RVR, now sinus, irregular. . 03/23 05:45 Order name: Basic Metabolic Panel [facility] 03/23 05:45 Order name: CBC with Diff [facility] 03/23 05:45 Order name: LFT's [facility] 03/23 05:45 Order name: Magnesium [facility] 03/23 05:45 Order name: NT PRO-BNP; Complete Time: 06:48 7 03/23 05:45 Order name: PT-INR; Complete Time: 06:48 7 03/23 05:45 Order name: Troponin (emerg Dept Use Only); Complete Time: 06:48 7 03/23 05:45 Order name: Basic Metabolic Panel; Complete Time: 06:48 EDMS 03/23 05:45 Order name: CBC with Automated Diff; Complete Time: 06:21 EDMS 03/23 05:45 Order name: Liver (Hepatic) Function; Complete Time: 06:48 EDMS 03/23 05:45 Order name: Magnesium; Complete Time: 06:48 EDMS 03/23 07:14 Order name: COVID-19 : Document "Date of Symptom Onset" if Symptomatic. ss 03/23 08:57 Order name: SARS-COV-2 RT PCR EDDC 03/23 12:35 Order name: Troponin I EDDC 03/23 05:45 Order name: XRAY Chest ([address] view) [facility] 03/23 05:45 Order name: EKG; Complete Time: 05:46 [facility] 03/23 05:45 Order name: Cardiac monitoring; Complete Time: 05:45 7 03/23 05:45 Order name: EKG - Nurse/Tech; Complete Time: 05:45 7 03/23 05:45 Order name: IV Saline Lock; Complete Time: 05:45 7 03/23 05:45 Order name: Labs collected and sent; Complete Time: 05:45 7 03/23 05:45 Order name: O2 Per Protocol; Complete Time: 05:45 [facility] 03/23 07:40 Order name: CONS Physician Consult EDDC 03/23 07:45 Order name: Echo with Doppler EDDC 03/23 19:03 Order name: Troponin I EDDC 03/23 20:15 Order name: ABG jb4 03/23 20:17 Order name: Glucose, Ancillary Testing EDDC 03/23 20:22 Order name: BIPAP rn 03/23 21:09 Order name: ABG Arterial Blood Gas EDDC 03/23 05:45 Order name: O2 Sat Monitoring; Complete Time: 05:45 mh7 Administered Medications: 06:10 Drug: Metoprolol 5 mg Route: IVP; Site: left forearm; rv 06:43 Drug: Metoprolol 5 mg Route: IVP; Site: left forearm; rv 06:53 Drug: Metoprolol 5 mg Route: IVP; Site: left forearm; rv 07:30 Follow up: Response: No adverse reaction hb 08:00 Drug: Aspirin Chewable Tablet 324 mg Route: PO; hb 08:50 Follow up: Response: No adverse reaction hb Disposition: 03/23/21 06:57 Hospitalization ordered by Hawk Marshall for Observation. Preliminary diagnosis are Chest pain, unspecified, Paroxysmal atrial fibrillation - with RVR. - Bed requested for Telemetry/MedSurg (Inpatient). - Status is Observation. jb4 - Condition is Stable. - Problem is an acute exacerbation. - Symptoms have improved. Signatures: Dispatcher [employer] EDMS Rosa Blank Stephanie, RN RN Virgil Sim MD MD rn Baxter, Heather, RN RN Nik Obregon RN JOSE RAUL jb4 Brandy Amaral RN JOSE RAUL Wilner Keene 2 Aquiles Wesley, RN JOSE RAUL [facility] [place] Gt Pradhan RN RN Leo Yanes MD MD mh7 Corrections: (The following items were deleted from the chart) 08:48 06:57 Hospitalization Ordered by Hawk Marshall MD for Observation. Preliminary hb diagnosis is Chest pain, unspecified; Paroxysmal atrial fibrillation - with RVR. Bed requested for Telemetry/MedSurg (observation). Status is Observation. Condition is Stable. Problem is an acute exacerbation. Symptoms have improved. [facility] 08:48 08:48 03/23/2021 06:57 Hospitalization Ordered by Hawk Marshall MD for Observation. sv Preliminary diagnosis is Chest pain, unspecified; Paroxysmal atrial fibrillation - with RVR. Bed requested for [facility] ER HOLD. Status is Observation. Condition is Stable. Problem is an acute exacerbation. Symptoms have improved. hb 18:38 08:48 03/23/2021 06:57 Hospitalization Ordered by Hawk Marshall MD for Observation. bd Preliminary diagnosis is Chest pain, unspecified; Paroxysmal atrial fibrillation - with RVR. Bed requested for [facility] ER HOLD. Status is Observation. Condition is Stable. Problem is an acute exacerbation. Symptoms have improved. sv 19:53 18:38 03/23/2021 06:57 Hospitalization Ordered by Hawk Marshall MD for Observation. mg2 Preliminary diagnosis is Chest pain, unspecified; Paroxysmal atrial fibrillation - with RVR. Bed requested for Telemetry/MedSurg (observation). Status is Observation. Condition is Stable. Problem is an acute exacerbation. Symptoms have improved. bd 21:02 19:53 03/23/2021 06:57 Hospitalization Ordered by Hawk Marshall MD for Observation. mw2 Preliminary diagnosis is Chest pain, unspecified; Paroxysmal atrial fibrillation - with RVR. Bed requested for Telemetry/MedSurg (observation). Status is Observation. Condition is Stable. Problem is an acute exacerbation. Symptoms have improved. mg2 22:26 21:02 03/23/2021 06:57 Hospitalization Ordered by Hawk Marshall MD for Observation. mw2 Preliminary diagnosis is Chest pain, unspecified; Paroxysmal atrial fibrillation - with RVR. Bed requested for Intensive Care Unit. Status is Observation. Condition is Stable. Problem is an acute exacerbation. Symptoms have improved. mw2 22:32 22:26 03/23/2021 06:57 Hospitalization Ordered by Hawk Marshall MD for Observation. jb4 Preliminary diagnosis is Chest pain, unspecified; Paroxysmal atrial fibrillation - with RVR. Bed requested for Telemetry/MedSurg (Inpatient). Status is Observation. Condition is Stable. Problem is an acute exacerbation. Symptoms have improved. mw2
--- NOTE | 2021-03-23 07:46 | P.HP ---
Certification for Inpatient Patient admitted to: Observation With expected LOS: <2 Midnights Practitioner: I am a practitioner with admitting privileges, knowledge of patient current condition, hospital course, and medical plan of care. Services: Services provided to patient in accordance with Admission requirements found in Title 42 Section 412.3 of the Code of Federal Regulations Patient History Date of Service: 03/23/21 Reason for admission: afib w/ RVR History of Present Illness: 70yo F, PMH: Paroxysmal afib w/ RVR, COPD, HTN Presents to ED due to worsening SOB, chest pain, palpitations. She was recently discharged last week due to similar episode -at that time she converted to sinus rhythm and discharged with metoprolol 50mg BID and eliquis. Patient has also been using her albuterol inhaler at least 4 times/day due to feeling short of breath. She also reports recent tooth infection/abscess that she has not had treated. Otherwise denies fevers, n/v/d, abd pain, rashes/lesions, numbness/tingling. She was given lopressor x 3 in the ED with slight improvement, with afib HR: 110-120s. Labwork rather unremarkable except for mildly elevated BNP and CO2. Allergies No Known Allergies Allergy (Unverified 03/19/21 02:47) Home Medications: Apixaban [Eliquis] 5 mg PO BID #0 tablet 03/19/21 Metoprolol Tartrate [Lopressor*] 50 mg PO BID #0 tab 03/19/21 Mometasone/Formoterol [Dulera 100 Mcg/5 Mcg Inhaler] 2 puff IH BID 30 Days #1 inhaler 03/19/21 Aspirin [Aspirin EC] 81 mg PO DAILY 03/23/21 Furosemide 40 mg PO DAILY 03/23/21 Potassium Chloride 20 meq PO DAILY 03/23/21 - Past Medical/Surgical History -: COPD -: Hypertension -: Tubal ligation Psychosocial/ Personal History: Patient is retired, lives with her - Family History Father -: Heart disease, Cancer Mother -: Heart disease, Cancer - Social History Smoking Status: Former smoker Alcohol use: No CD- Drugs: No Caffeine use: No Place of Residence: Home Review of Systems 10-point ROS is otherwise unremarkable Physical Examination - Studies Laboratory Data (last 24 hrs) 03/23/21 05:52: PT 14.3 H, INR 1.24 03/23/21 05:52: WBC 10.30, Hgb 12.2, Hct 38.4, Plt Count 219 03/23/21 05:52: Sodium 139, Potassium 4.5, BUN 24 H, Creatinine 0.51 L, Glucose 131 H, Magnesium 2.0 D, Total Bilirubin 0.3, AST 17, ALT 23, Alkaline Phosphatase 50 Assessment and Plan - Advance Directives Does patient have a Living Will: No Does patient have a Durable POA for Healthcare: No Physician Review Additional Text: Physical Exam: Gen: NAD, AAOx3 HEENT: normal conjunctiva, sclera anicteric, R lower molar with slight erythema and tenderness, no drainage CV: irregularly irregular rhythm, HR: 110-120 Pulm: diminished breath sounds / air movement, no wheeze, no rhonchi Abd: soft, nontender, nondistended Ext: no edema, no erythema, no lesions Neuro: alert, normal affect, moving all extremities Problem List Afib with RVR Acute hypoxemic respiratory failure secondary to acute on chronic COPD exacerbation Tooth abscess HTN -switch metoprolol to sotalol -continue eliquis -cardiology consulted -echo ordered -pt not moving much air, sounds tight, start xopenex PRN, continue dulera -start prednisone -afib likely triggered by COPD and using albuterol inhaler at least 4 times a day -possible tooth abscess, start augmentin VTE: eliquis Code: full Dispo: anticipate dc home in 24-48hrs Time Spent Managing Pts Care (In Minutes): 60
[2021-03-23] MEDS: SOTALOL HCL 80 MG TAB PO SCH ×2 (08:30→18:00)
--- NOTE | 2021-03-23 08:34 | RAD REPORT ---
EXAM DESCRIPTION: RAD - Chest Single View - 03/23/2021 6:17 am CLINICAL HISTORY: Chest pain;SOB Chest pain. COMPARISON: Chest Single View dated 03/18/2021 FINDINGS: Portable technique limits examination quality. The lungs are grossly clear. The heart is normal in size. No displaced fractures. IMPRESSION: No acute intrathoracic process suspected.
[2021-03-23] MEDS ORDERED: SOTALOL HCL 80 MG TAB ONE ×2 (08:43→19:39)
[2021-03-23] MEDS ORDERED: APIXABAN 5 MG TABLET ONE (08:43)
[2021-03-23] MEDS: APIXABAN 5 MG TABLET PO SCH ×2 (08:48→23:00)
[2021-03-23] MEDS ORDERED: METOPROLOL TAR 50 MG TAB PO SCH (09:00)
[2021-03-23 09:05] VITALS: BMI 26.0
--- NOTE | 2021-03-23 09:17 | EKG ---
Test Date: 2021-03-23 Test Time: 05:43:04 Pulmonologist: ALEKSEY MEASUREMENT RESULTS: Intervals: Rate: 130 AR: QRSD: 74 QT: 290 QTc: 426 [place]: P: AR: QRS: 84 T: 94 INTERPRETIVE STATEMENTS: Atrial fibrillation with rapid ventricular response Nonspecific ST abnormality, probably digitalis effect Abnormal ECG Compared to ECG 03/23/2021 05:41:54 No significant changes Electronically Signed On 03-23-21 09:17:02 CDT by Raheem Blackwood
--- NOTE | 2021-03-23 09:17 | EKG ---
Test Date: 2021-03-23 Test Time: 07:35:30 Advertising Copywriter: HB MEASUREMENT RESULTS: Intervals: Rate: 107 IN: 144 QRSD: 66 QT: 300 QTc: 400 [place]: P: 70 IN: 144 QRS: 75 T: 67 INTERPRETIVE STATEMENTS: Sinus tachycardia Otherwise normal ECG Compared to ECG 03/23/2021 05:43:04 Atrial fibrillation no longer present ST (T wave) deviation no longer present Electronically Signed On 03-23-21 09:17:01 CDT by Raheem Blackwood
--- NOTE | 2021-03-23 09:17 | EKG ---
Test Date: 2021-03-23 Test Time: 07:36:08 Chief Nursing Executive: HB MEASUREMENT RESULTS: Intervals: Rate: 168 MI: QRSD: 72 QT: 280 QTc: 468 [place]: P: MI: QRS: 78 T: 74 INTERPRETIVE STATEMENTS: Undetermined rhythm Nonspecific ST abnormality Abnormal ECG Compared to ECG 03/23/2021 07:35:30 ST (T wave) deviation now present Sinus tachycardia no longer present Electronically Signed On 03-23-21 09:17:00 CDT by Raheem Blackwood
--- NOTE | 2021-03-23 09:17 | EKG ---
Test Date: 2021-03-23 Test Time: 05:41:54 Nurse Informaticist: ALEKSEY MEASUREMENT RESULTS: Intervals: Rate: 97 HI: QRSD: 96 QT: 288 QTc: 365 [place]: P: HI: QRS: 83 T: 77 INTERPRETIVE STATEMENTS: Atrial fibrillation Nonspecific ST and T wave abnormality, probably digitalis effect Abnormal ECG Compared to ECG 03/19/2021 01:04:23 No significant changes Electronically Signed On 03-23-21 09:17:03 CDT by Raheem Blackwood
[2021-03-23] MEDS ORDERED: ALBUTEROL 2.5 MG/3 ML NEB SOL NEB PRN (12:19)
[2021-03-23] MEDS: LEVALBUTEROL 0.63 MG/3 ML NEB NEB PRN (12:30)
[2021-03-23] MEDS ORDERED: LEVALBUTEROL 1.25 MG/3 ML NEB ONE (12:45)
--- NOTE | 2021-03-23 13:13 | CON ---
Reason For Consultation: The patient is a 70-year-old white woman. She was admitted to Dr. Marshall's service with recurrent atrial fibrillation. History Of Present Illness: Ms. Jumana Ley is a 70-year-old white woman. She was in the [facility] recently for atrial fibrillation, new onset. Has a history of COPD at home. She is on home o xygen. She takes inhalers. The last time she was here, we put her on metoprolol and Eliquis and Las ix and aspirin. She was on inhalers at home as well. She converted to sinus rhythm on metoprolol la visit, but she was also seen in the office today. She comes back with another episode of atrial f ibrillation with rapid ventricular response. She is back in normal rhythm after IV beta-shikha and having no symptoms. During her atrial fibrillation, she appeared short of breath and she had chest p ain and arm pain. Past Medical History: As stated above. Allergies: NONE. Medications: Listed earlier. Review of Systems: Negative. Social History: Positive for history of tobacco use. Family History: Negative. Physical Examination: Vital Signs: When I saw her; she was in sinus rhythm with PACs, heart rate of 70. HEENT: Negative. Neck: Supple with no bruit. Chest: Clear to auscultation and percussion. Cardiac: Revealed sinus rhythm. No murmurs, gallops, or rubs. Abdomen: Benign. Extremities: Revealed no clubbing, cyanosis, or edema. Diagnostic Data: Except for the atrial fibrillation were normal. Impression And Plan: Recurrent atrial fibrillation probably secondary to chronic obstructive pulmona ry disease with low oxygen tension. She is on home oxygen. We will switch her metoprolol to sotalol 80 mg 1 p.o. twice a day. She will have to be in the hospital for 3 doses before she goes home. Co milan the Eliquis. She will need an outpatient echocardiogram and a stress test, and she will see jaqueline wilcox in the office in the near future. She can go home tomorrow. ROCÍO/DIMTIRI Voice ID: [id number] Report ID: [id number]
[2021-03-23] MEDS: AMOX/K CLAV 875 MG TAB PO SCH ×2 (14:00→23:00)
[2021-03-23] MEDS ORDERED: LORAZEPAM 0.5 MG TABLET PO ONE (17:00)
[2021-03-23] MEDS ORDERED: LORAZEPAM 0.5 MG TABLET ONE (17:35)
[2021-03-23] MEDS ORDERED: DULERA 100/5 (MOMETASONE/FORMOTEROL) INHALER IH SCH (21:00)
[2021-03-23 21:04] LABS: Arterial Blood Carboxyhemoglob 0.6 % (0-1.5); Blood Gas Oxyhemoglobin 96.1 % (94-97); Blood O2 Saturation 97.7 % (92-98.5)
[2021-03-23] MEDS: predniSONE 20 MG TAB PO SCH (23:00)
[2021-03-23 23:16] LABS: Blood O2 Saturation 91.8 % (92-98.5)
[2021-03-24 05:17] LABS: Urine Appearance CLEAR (Clear); Urine Bilirubin NEGATIVE (Negataive); Urine Blood TRACE (Negative); Urine Color YELLOW (Yellow); Urine Glucose NEGATIVE (Negative); Urine Protein 3+ (Negative); Urine Specific Gravity 1.025 (1.005-1.030); Urine Urobilinogen 0.2 mg/dL (0.2-1.0)
[2021-03-24 05:37] LABS: Urine Microscopic Reflex ORDER UMIC
[2021-03-24 05:48] LABS: Urine Bacteria <20 /HPF (<20); Urine RBC <5 /HPF (NONE SEEN); Urine Urothelial Cells <5 /HPF (NONE SEEN)
[2021-03-24 06:16] LABS: Absolute Lymphocytes (CBC) 0.4 K/uL (0.7-4.9); Basophils % 0.2 % (0-1.3); Hematocrit 38.1 % (36.0-45.0); MPV 9.5 fL (7.6-11.3); RBC Red Blood Cell Count 4.11 M/uL (3.86-4.86)
[2021-03-24 06:49] LABS: Platelet Estimate ADEQ; White Blood Cell Scan OK (OK)
[2021-03-24 06:50] LABS: Blood Morphology Comment NOTED (NOT SEEN); Stomatocytes 2+
[2021-03-24 07:25] LABS: ALT/SGPT 22 U/L (12-78); AST/SGOT 21 U/L (15-37); Albumin 3.4 g/dL (3.4-5.0); Alkaline Phosphatase 45 U/L (45-117); BUN Blood Urea Nitrogen 23 mg/dL (7-18); Bicarbonate 35 mmol/L (21-32); Bilirubin Total 0.4 mg/dL (0.2-1.0); Glucose Level 108 mg/dL (74-106); Magnesium 2.1 mg/dL (1.8-2.4); Phosphorus 3.6 mg/dL (2.5-4.9); Potassium 4.7 mmol/L (3.5-5.1); Protein, Total 7.1 g/dL (6.4-8.2); Sodium Level 140 mmol/L (136-145)
--- NOTE | 2021-03-24 08:15 | ECHO ---
HEIGHT: 5 ft 1 in WEIGHT: 138 lb 0 oz DATE OF STUDY: 03/23/[address]: Hawk Marshall MD 2-DIMENSIONAL: YES M.MODE: YES DOPPLER: YES COLOR FLOW: YES TDS: PORTABLE: DEFINITY: BUBBLE STUDY: DIAGNOSIS: ATRIAL FIBRILLATION, EVALUATE FUNCTION CARDIAC HISTORY: CATHERIZATION: NO SURGERY: NO PROSTHETIC VALVE: NO PACEMAKER: NO MEASUREMENTS (cm) DIASTOLIC (NORMALS) SYSTOLIC (NORMALS) IVSd 1.0 (0.6-1.2) LA Diam 2.8 (1.9-4.0) LVEF 55% LVIDd 3.4 (3.5-5.7) LVIDs 2.5 (2.0-3.5) %FS 28% LVPWd 1.1 (0.6-1.2) Ao Diam 2.4 (2.0-3.7) 2 DIMENSIONAL ASSESSMENT: RIGHT ATRIUM: NORMAL LEFT ATRIUM: NORMAL RIGHT VENTRICLE: NORMAL LEFT VENTRICLE: NORMAL TRICUSPID VALVE: NORMAL MITRAL VALVE: MILD MITRAL REGURGITATION PULMONIC VALVE: NORMAL AORTIC VALVE: NORMAL PERICARDIAL EFFUSION: NONE AORTIC ROOT: NORMAL LEFT VENTRICULAR WALL MOTION: NORMAL DOPPLER/COLOR FLOW: SEE BELOW COMMENTS: NORMAL LEFT VENTRICULAR EJECTION FRACTION 55-60%. NORMAL WALL MOTION. MILD MITRAL REGURGITATION. ATRIAL FIBRILLATION. TECHNOLOGIST: TAWANNA LORENZ
[2021-03-24] MEDS: APIXABAN 5 MG TABLET PO SCH ×2 (08:19→21:31)
[2021-03-24] MEDS: AMOX/K CLAV 875 MG TAB PO SCH ×2 (08:19→21:31)
[2021-03-24] MEDS: predniSONE 20 MG TAB PO SCH ×2 (08:19→21:31)
[2021-03-24] MEDS: ASPIRIN EC 81 MG TAB PO SCH (08:19)
[2021-03-24] MEDS ORDERED: FUROSEMIDE 40 MG TABLET PO SCH (09:00)
[2021-03-24] MEDS: LEVALBUTEROL 0.63 MG/3 ML NEB NEB PRN (14:15)
[2021-03-24] MEDS: IPRATROPIUM BROM 0.5MG/2.5ML NEB SCH ×2 (14:15→19:43)
[2021-03-24 14:38] LABS: Arterial Blood Carboxyhemoglob 1.1 % (0-1.5); Blood Gas Oxyhemoglobin 85.5 % (94-97); Blood O2 Saturation 87.3 % (92-98.5)
[2021-03-24] MEDS: acetaZOLAMIDE 250 MG TAB PO SCH (15:48)
--- NOTE | 2021-03-24 15:58 | P.PN ---
Subjective Date of Service: 03/24/21 Chief Complaint: afib w/ RVR Patient heart rate has improved. She is quiet dyspneic on oxygen by nasal cannula. Physical Examination - Vital Signs Temperature: 98.1 F Blood Pressure: 189/87 Pulse: 79 Respirations: 24 Pulse Ox (%): 99 - Physical Exam General: Alert, Oriented x3, Moderate distress HEENT: Mucous membr. moist/pink Neck: Supple, JVD not distended Respiratory: Diminished (Markedly demented bilateral) Cardiovascular: No edema, Normal S1 S2, Irregular heart rate/rhythm Gastrointestinal: Normal bowel sounds, Soft and benign, Non-distended, No tenderness Musculoskeletal: No swelling Integumentary: No rashes Neurological: Normal strength at 5/5 x4 extr - Studies Laboratory Data (last 24 hrs) 03/24/21 06:50: Sodium 140, Potassium 4.7, BUN 23 H, Creatinine 0.43 L, Glucose 108 H, Phosphorus 3.6, Magnesium 2.1, Total Bilirubin 0.4, AST 21, ALT 22, Alkaline Phosphatase 45 03/24/21 05:20: WBC 10.80, Hgb 12.3, Hct 38.1, Plt Count 180 03/23/21 23:30: Troponin I < 0.02 03/23/21 18:32: Troponin I < 0.02 Assessment And Plan Physician Review Additional Text: Problem List Afib with RVR Acute hypoxemic respiratory failure secondary to acute on chronic COPD exacerbation Tooth abscess HTN -continue sotalol per Cardiology recommended -continue eliquis -echo unremarkable. It showed atrial fibrillation and normal EF. -continue bronchodilators. -IV Solu-Medrol -afib likely triggered by COPD and using albuterol inhaler at least 4 times a day -possible tooth abscess, continue augmentin. -cardiology is following. VTE: eliquis Code: full Dispo: anticipate dc home in 24-48hrs
[2021-03-24] MEDS: SOTALOL HCL 80 MG TAB PO SCH (18:27)
[2021-03-24] MEDS: ACETAMINOPHEN 500 MG TAB PO PRN (18:29)
[2021-03-24] MEDS ORDERED: ACETAMINOPHEN 500 MG TAB ONE (18:35)
[2021-03-24] MEDS: ARFORMOTEROL TARTRATE 15 MCG/2 ML VIAL.NEB NEB SCH (19:43)
[2021-03-25] MEDS: IPRATROPIUM BROM 0.5MG/2.5ML NEB SCH ×4 (01:00→20:00)
[2021-03-25] MEDS: SOTALOL HCL 80 MG TAB PO SCH ×2 (05:39→18:51)
[2021-03-25 06:11] LABS: BUN Blood Urea Nitrogen 22 mg/dL (7-18); Bicarbonate 37 mmol/L (21-32); Glucose Level 118 mg/dL (74-106); Potassium 4.3 mmol/L (3.5-5.1); Sodium Level 140 mmol/L (136-145)
[2021-03-25 06:15] LABS: Absolute Lymphocytes (CBC) 0.6 K/uL (0.7-4.9); Basophils % 0.3 % (0-1.3); Hematocrit 38.1 % (36.0-45.0); MPV 9.3 fL (7.6-11.3); RBC Red Blood Cell Count 4.09 M/uL (3.86-4.86)
[2021-03-25] MEDS: ASPIRIN EC 81 MG TAB PO SCH (08:35)
[2021-03-25] MEDS: acetaZOLAMIDE 250 MG TAB PO SCH (08:35)
[2021-03-25] MEDS: predniSONE 20 MG TAB PO SCH ×2 (08:35→20:52)
[2021-03-25] MEDS: APIXABAN 5 MG TABLET PO SCH ×2 (08:35→20:52)
[2021-03-25] MEDS: AMOX/K CLAV 875 MG TAB PO SCH ×2 (08:35→20:52)
[2021-03-25] MEDS: ARFORMOTEROL TARTRATE 15 MCG/2 ML VIAL.NEB NEB SCH ×2 (08:45→20:00)
[2021-03-25] MEDS: LEVALBUTEROL 0.63 MG/3 ML NEB NEB PRN ×2 (08:45→13:30)
--- NOTE | 2021-03-25 08:54 | P.CNS ---
Date of Consult: 03/25/21 Reason for Consult: Respiratory failure Chief Complaint: Respiratory failure History of Present Illness: Patient is 70 years of age with a history of severe COPD has been sick for about 2 weeks complaining of chronic shortness of breath he was scheduled to see a sheet metal layout mechanic in [place] nonproductive cough patient uses a bronchodilator at home 4 times a day does not smoke denies any lower extremity edema Allergies No Known Allergies Allergy (Unverified 03/19/21 02:47) Home Medications: Apixaban [Eliquis] 5 mg PO BID #0 tablet 03/19/21 Metoprolol Tartrate [Lopressor*] 50 mg PO BID #0 tab 03/19/21 Mometasone/Formoterol [Dulera 100 Mcg/5 Mcg Inhaler] 2 puff IH BID 30 Days #1 inhaler 03/19/21 Aspirin [Aspirin EC] 81 mg PO DAILY 03/23/21 Furosemide 40 mg PO DAILY 03/23/21 Potassium Chloride 20 meq PO DAILY 03/23/21 Fluticasone/Umeclidin/Vilanter [Trelegy Ellipta 100-62.5-25] 1 each IH DAILY #30 blst.w.dev 03/25/21 - Past Medical/Surgical History -: COPD -: Hypertension -: Tubal ligation Psychosocial/ Personal History: Patient is retired, lives with her - Family History Father Medical History: Heart disease, Cancer Mother Medical History: Heart disease, Cancer - Social History Alcohol use: No CD- Drugs: No Caffeine use: No Place of Residence: Home Review of Systems 10-point ROS is otherwise unremarkable General: Weakness Respiratory: Shortness of Breath Physical Examination Temp Pulse Resp BP Pulse Ox 97.7 F 68 18 139/65 99 03/25/21 04:00 03/25/21 04:00 03/25/21 04:00 03/25/21 04:00 03/25/21 04:00 General: Alert, Moderate distress Respiratory: Normal air movement, Expiratory wheezes Cardiovascular: No edema, Normal S1 S2 Gastrointestinal: Normal bowel sounds, Soft and benign - Problems (1) Chronic respiratory failure with hypercapnia Current Visit: Yes Status: Acute Plan: Patient is 70 years of age admitted with chronic respiratory failure hypercapnic and will benefit from a noninvasive ventilator to prevent Re admissions in view of the severity of her condition her regular BiPAP will not be helpful patient's requirement is 1 L nasal cannula oxygen with 2 L on ambulation at night at [facility] will benefit from a trilogy in you with nebulize bronchodilators low-dose prednisone plan for discharge patient has home oxygen discharged home on prednisone 20 b.i.d. for a week and then 10 twice a day and Treelgy inhaler
[2021-03-25] MEDS: ACETAMINOPHEN 500 MG TAB PO PRN ×2 (13:35→20:55)
--- NOTE | 2021-03-25 13:55 | P.PN ---
Subjective Date of Service: 03/25/21 Chief Complaint: Respiratory failure Patient states she feels much better compared to yesterday. She states her breathing is better and she is less short of breath. Physical Examination - Vital Signs Temperature: 98.3 F Blood Pressure: 127/57 Pulse: 58 Respirations: 18 Pulse Ox (%): 98 - Physical Exam General: Alert, In no apparent distress, Oriented x3 HEENT: Mucous membr. moist/pink Neck: JVD not distended Respiratory: Diminished (But improved from yesterday.) Cardiovascular: No edema, Regular rate/rhythm, Normal S1 S2 Gastrointestinal: Normal bowel sounds, Soft and benign, Non-distended, No tenderness Musculoskeletal: No swelling, No tenderness Integumentary: No rashes, No erythema Neurological: Normal strength at 5/5 x4 extr Assessment And Plan Physician Review Additional Text: Problem List Afib with RVR Acute hypoxemic respiratory failure secondary to acute on chronic COPD exacerbation Tooth abscess HTN -continue sotalol per Cardiology recommended -continue eliquis -echo unremarkable. It showed atrial fibrillation and normal EF. -continue bronchodilators. -pulmonary input appreciated. Patient started on Borvana -continue oral prednisone. -afib likely triggered by COPD and using albuterol inhaler at least 4 times a day -possible tooth abscess, continue augmentin. -cardiology is following. VTE: eliquis Code: full
--- NOTE | 2021-03-26 00:16 | PN ---
Date of Progress Note: 03/24/2021 Ms. Ley is being seen today. She was admitted on 03/23/2021 with recurrent atrial fibrillatio n. She was placed on sotalol 80 mg 1 p.o. b.i.d. She continues her anticoagulant overnight. She to lerated the sotalol well. Her QT is not prolonged. She remains in sinus rhythm. She can go home to day on her anticoagulation plus 80 mg 1 p.o. b.i.d. of sotalol. I will see her in the office in the next couple of weeks. ROCÍO/DIMITRI Voice ID: [id number] Report ID: [id number]
[2021-03-26] MEDS: IPRATROPIUM BROM 0.5MG/2.5ML NEB SCH ×3 (02:20→14:03)
[2021-03-26 05:31] LABS: Absolute Lymphocytes (CBC) 0.5 K/uL (0.7-4.9); Basophils % 0.2 % (0-1.3); Hematocrit 38.6 % (36.0-45.0); Lymphocytes % 6.6 % (15.3-44.8); RBC Red Blood Cell Count 4.14 M/uL (3.86-4.86)
[2021-03-26 05:36] LABS: BUN Blood Urea Nitrogen 21 mg/dL (7-18); Bicarbonate 34 mmol/L (21-32); Glucose Level 130 mg/dL (74-106); Potassium 4.7 mmol/L (3.5-5.1); Sodium Level 139 mmol/L (136-145)
[2021-03-26] MEDS: SOTALOL HCL 80 MG TAB PO SCH (05:50)
[2021-03-26] MEDS: ARFORMOTEROL TARTRATE 15 MCG/2 ML VIAL.NEB NEB SCH (08:15)
[2021-03-26 09:36] VITALS: O2SAT 97
[2021-03-26] MEDS: acetaZOLAMIDE 250 MG TAB PO SCH (09:39)
[2021-03-26] MEDS: ASPIRIN EC 81 MG TAB PO SCH (09:39)
[2021-03-26] MEDS: AMOX/K CLAV 875 MG TAB PO SCH (09:39)
[2021-03-26] MEDS: APIXABAN 5 MG TABLET PO SCH (09:40)
[2021-03-26] MEDS: predniSONE 20 MG TAB PO SCH (09:40)
[2021-03-26] MEDS: ACETAMINOPHEN 500 MG TAB PO PRN (09:42)
--- NOTE | 2021-03-26 13:13 | P.DS ---
Admission Date: 03/24/21 Discharge Date: 03/26/21 Disposition: ROUTINE DISCHARGE Discharge Condition: FAIR Reason for Admission: Respiratory failure - Problems (1) Atrial fibrillation with RVR Status: Acute (2) Acute and chronic respiratory failure with hypercapnia Status: Acute (3) Tooth abscess Status: Acute Brief History of Present Illness: 70 year old woman with PMH: Paroxysmal afib w/ RVR, COPD, HTN presented to ED due to worsening SOB, chest pain, palpitations. She was recently discharged last week due to similar episode -at that time she converted from AFib to sinus rhythm and discharged with metoprolol 50mg BID and eliquis. Patient has also been using her albuterol inhaler at least 4 times/day due to feeling short of breath. She also reports recent untreated tooth infection. She was given lopressor x 3 in the ED with slight improvement of afib to HR: 110-120s. Labwork showed mildly elevated BNP and CO2. Patient admitted for further management. Hospital Course: Patient admitted to the medical floor. She was seen by cardiology who placed on Sotalol. Patient was maintained on sinus rhythm on the sotalol. She is on Eliquis anticoagulation which was continued during the hospital stay. She was also treated for COPD exacerbation with scheduled bronchodilators. She was seen in consultation by pulmonary who put her on Brovana. She received IV Solu- Medrol and later transitioned to oral prednisone. She was treated for suspected delete infection with oral Augmentin. Patient clinical condition improved to baseline with treatment. She remained in sinus rhythm. Patient is discharged to continue Augmentin for possible tooth infection. She will also continue sotalol and Eliquis for atrial fibrillation. Patient referred Dr. Cortes for primary care. She will also follow Dr. Fleming and Dr. Blackwood as an outpatient. Vital Signs/Physical Exam: Temp Pulse Resp BP Pulse Ox 98.8 F 50 22 H 137/64 98 03/26/21 12:00 03/26/21 12:00 03/26/21 12:00 03/26/21 12:03/26/21 12:00 General: Alert, In no apparent distress HEENT: Mucous membr. moist/pink, Other (Oxygen by nasal cannula) Neck: JVD not distended Respiratory: Clear to auscultation bilaterally, Normal air movement Cardiovascular: No edema, Regular rate/rhythm, No murmurs Capillary refill: <2 Seconds Gastrointestinal: Normal bowel sounds, Soft and benign Musculoskeletal: No swelling Integumentary: No rashes Neurological: Normal gait, Normal strength at 5/5 x4 extr Laboratory Data at Discharge: WBC 8.20 K/uL (4.3-10.9) 03/26/21 04:54 Hgb 12.3 g/dL (12.0-15.0) 03/26/21 04:54 Hct 38.6 % (36.0-45.0) 03/26/21 04:54 Plt Count 217 K/uL (152-406) 03/26/21 04:54 PT 14.3 SECONDS (9.5-12.5) H 03/23/21 05:52 INR 1.24 03/23/21 05:52 Sodium 139 mmol/L (136-145) 03/26/21 04:54 Potassium 4.7 mmol/L (3.5-5.1) 03/26/21 04:54 BUN 21 mg/dL (7-18) H 03/26/21 04:54 Creatinine 0.52 mg/dL (0.55-1.3) L 03/26/21 04:54 Glucose 130 mg/dL (74-106) H 03/26/21 04:54 Phosphorus 3.6 mg/dL (2.5-4.9) 03/24/21 06:50 Magnesium 2.1 mg/dL (1.8-2.4) 03/24/21 06:50 Total Bilirubin 0.4 mg/dL (0.2-1.0) 03/24/21 06:50 AST 21 U/L (15-37) 03/24/21 06:50 ALT 22 U/L (12-78) 03/24/21 06:50 Alkaline Phosphatase 45 U/L (45-117) 03/24/21 06:50 Troponin I < 0.02 ng/mL (0.0-0.045) 03/23/21 23:30 Home Medications: Aspirin [Aspirin EC] 81 mg PO DAILY 03/23/21 Fluticasone/Umeclidin/Vilanter [Trelegy Ellipta 100-62.5-25] 1 each IH DAILY #30 blst.w.dev 03/25/21 Amox/Clavulanate [Augmentin 875-125 Tab*] 875 mg PO BID #14 tab 03/26/21 Apixaban [Eliquis] 5 mg PO BID #60 tablet 03/26/21 Furosemide [Lasix*] 40 mg PO DAILY 30 Days #30 tab 03/26/21 Ipratropium Neb [Atrovent*] 0.5 mg NEB [id number] #120 amp 03/26/21 Levalbuterol [Xopenex*] 0.63 mg NEB [id number] PRN #120 vial 03/26/21 Potassium Chloride 20 meq PO DAILY 30 Days #30 tablet.er 03/26/21 Sotalol HCl [Betapace*] 80 mg PO BID 6AM 6PM #60 tab 03/26/21 acetaZOLAMIDE [Diamox*] 250 mg PO DAILY #30 tab 03/26/21 predniSONE [Prednisone*] 20 mg PO BID #14 tab 03/26/21 New Medications: Ipratropium Neb [Atrovent*] 0.5 mg NEB [id number] #120 amp Levalbuterol [Xopenex*] 0.63 mg NEB [id number] PRN #120 vial PRN Reason: Shortness Of Breath Amox/Clavulanate [Augmentin 875-125 Tab*] 875 mg PO BID #14 tab Sotalol HCl [Betapace*] 80 mg PO BID 6AM 6PM #60 tab acetaZOLAMIDE [Diamox*] 250 mg PO DAILY #30 tab Apixaban [Eliquis] 5 mg PO BID #60 tablet Furosemide [Lasix*] 40 mg PO DAILY 30 Days #30 tab Potassium Chloride 20 meq PO DAILY 30 Days #30 tablet.er predniSONE [Prednisone*] 20 mg PO BID #14 tab Fluticasone/Umeclidin/Vilanter [Trelegy Ellipta 100-62.5-25] 1 each IH DAILY #30 blst.w.dev Diet: AHA Activity: Ad eddie Followup: Prashant Fleming MD [ACTIVE - CAN ADMIT] - 1-2 Weeks (Call to make an appointment. ) Raheem Blackwood MD [ACTIVE - CAN ADMIT] - 1-2 Weeks (Call to make an appointment. ) Unknown,U [Primary Care Provider] - Time spent managing pt's care (in minutes): 40
[2021-03-26 19:16] VITALS: BP 154/67; TEMP 98.4
== END 2021-03-26 16:18 | disposition home or self-care (01) | DRG 189 ==
LOC: ER 05:13 → ERHOLD 07:39 → 2ND 19:26 → OBSVTOIN 03-24 08:25
PROVIDERS: ADMIT Hospitalist; ATTEND Internal Medicine
PROC: 5A09457 Assistance with Respiratory Ventilation, 24-96 Consecutive Hours, Continuous Positive Airway Pressure (ICD-10-PCS; principal; 2021-03-24)
DX: J96.22 Acute and chronic respiratory failure with hypercapnia (principal); J44.1 Chronic obstructive pulmonary disease with (acute) exacerbation; J96.01 Acute respiratory failure with hypoxia; I48.0 Paroxysmal atrial fibrillation; K04.7 Periapical abscess without sinus; I10 Essential (primary) hypertension; Z79.899 Other long term (current) drug therapy; Z98.51 Tubal ligation status; Z79.01 Long term (current) use of anticoagulants; Z79.82 Long term (current) use of aspirin; Z87.891 Personal history of nicotine dependence; Z99.81 Dependence on supplemental oxygen; Z79.52 Long term (current) use of systemic steroids; Z20.822 Contact with and (suspected) exposure to COVID-19
CPT/HCPCS: 36415; 71045; 80048; 80053; 80076; 81003; 81015; 82805; 82947; 83735; 83880; 84100; 84484; 85025; 85610; 93005; 93306; 94640; 94660; 94760; 96374; 99285; G0378; J7030; J7512; J7605; J7606; U0003